=== PATIENT | male | born 1995 ===

== ENCOUNTER 2023-10-13 11:09 | Emergency (ER) | payer OTHER ==
[~2023-10-13] VITALS: Ht 170.2 cm; Wt 60.5 kg
[2023-10-13 11:27] VITALS: TEMP 98.1
[2023-10-13] MEDS: IBUPROFEN 600 MG TABLET PO ONE (12:06)
[2023-10-13 12:45] VITALS: BP 124/74; PULSE 75; RESP 16
== END 2023-10-13 12:46 | disposition home or self-care (01) ==
LOC: EMS 11:09
DX: S93.401A Sprain of unspecified ligament of right ankle, initial encounter (principal); F12.90 Cannabis use, unspecified, uncomplicated; Z98.890 Other specified postprocedural states; X58.XXXA Exposure to other specified factors, initial encounter; Y93.89 Activity, other specified; Y92.89 Other specified places as the place of occurrence of the external cause; Y99.8 Other external cause status
CPT/HCPCS: 99284; 73590-TC; 73610-TC; Z7502; Z7610